=== PATIENT | male | born 1975 | race Caucasian/White ===

== ENCOUNTER 2018-02-24 16:54 | Emergency (ER) | payer MEDICAID, OTHER ==
[~2018-02-24] VITALS: Ht 175.3 cm; Wt 60.0 kg
[2018-02-24 18:13] LABS: CLARITY,URINE CLEAR (Clear); COLOR,URINE YELLOW (Yellow); GLUCOSE, URINE NEGATIVE (Neg); KETONES,URINE NEGATIVE (Neg); LEUKOCYTE ESTERASE ,URINE NEGATIVE (Neg); NITRITES, URINE NEGATIVE (Neg); OCCULT BLOOD,URINE NEGATIVE (Neg); PROTEIN,URINE NEGATIVE (Neg); UA COLLECTION TYPE CLN CATCH MIDSTREAM; UROBILINOGEN,URINE 0.2 E.U/dL (0.2-1.0)
[2018-02-24 19:03] VITALS: BP 170/72
== END 2018-02-24 20:09 | disposition home or self-care (01) ==
LOC: ER 16:55
DX: B34.9 Viral infection, unspecified (principal); F17.200 Nicotine dependence, unspecified, uncomplicated; F12.90 Cannabis use, unspecified, uncomplicated
CPT/HCPCS: 81003; 99283

== ENCOUNTER 2018-03-11 22:38 | Emergency (ER) | payer MEDICAID, OTHER ==
[~2018-03-11] VITALS: Ht 175.3 cm; Wt 52.7 kg
[2018-03-11] MEDS ORDERED: LORazepam 2 mg/ml vial IM ONE (22:50)
[2018-03-11 23:43] LABS: BASOPHILS # (AUTO) 0.1 X10'3 (0-0.2); BASOPHILS % (AUTO) 0.4 % (0-1); EOSINOPHILS # (AUTO) 0.1 X10'3 (0-0.9); EOSINOPHILS % (AUTO) 1.2 % (0-6); HEMATOCRIT 41.4 % (42.0-52.0); HEMOGLOBIN 14.2 g/dl (14.0-17.9); LYMPHOCYTES # (AUTO) 1.7 X10'3 (1.1-4.8); LYMPHOCYTES % (AUTO) 15.3 % (21-51); MEAN CORPUSCULAR HEMOGLOBIN 32.4 PG (27.0-31.0); MEAN CORPUSCULAR HGB CONC 34.4 % (33.0-36.5); MEAN CORPUSCULAR VOLUME 94.1 FL (78-98); MEAN PLATELET VOLUME 8.5 FL (7.4-10.4); MONOCYTES # (AUTO) 0.5 X10'3 (0-0.9); MONOCYTES % (AUTO) 4.2 % (2-12); NEUTROPHILS % (AUTO) 78.9 % (42-75); PLATELET COUNT 350 X10'3 (140-440); RED CELL DISTRIBUTION WIDTH 12.4 % (11.5-14.5); WHITE BLOOD COUNT 11.4 X10'3 (4.5-11.0)
[2018-03-12 00:08] LABS: ALANINE AMINOTRANSFERASE 26 U/L (12-78); ALBUMIN 4.1 G/DL (3.4-5.0); ALBUMIN/GLOBULIN RATIO 1.1 (1.1-1.5); ALKALINE PHOSPHATASE 77 IU/L (46-116); ANION GAP 7 (8-16); ASPARTATE AMINO TRANSFERASE 26 U/L (10-37); BILIRUBIN,TOTAL 0.5 MG/DL (0.1-1.0); BLOOD UREA NITROGEN 20 MG/DL (7-18); BUN/CREATININE RATIO 19.4 (5.4-32.0); CHLORIDE 101 MMOL/L (99-107); CREATININE 1.03 MG/DL (0.60-1.10); ETHANOL < 0.010 GM/DL (0.0-0.010); GLUCOSE 76 MG/DL (70-104); POTASSIUM 3.2 MMOL/L (3.5-5.1); SODIUM 140 MMOL/L (135-145); TOTAL CARBON DIOXIDE 31.6 MMOL/L (24-32); TOTAL PROTEIN 7.8 G/DL (6.4-8.2); eGFR 79 ML/MIN
[2018-03-12 00:09] LABS: CALCIUM 9.1 MG/DL (8.5-10.1)
[2018-03-12 00:11] VITALS: BP 131/92
--- NOTE | 2018-03-12 00:15 | NUR ---
SOC INIATED CAMERA PLACED IN THE ROOM.
[2018-03-12 00:26] LABS: CLARITY,URINE CLOUDY (Clear); COLOR,URINE YELLOW (Yellow); GLUCOSE, URINE NEGATIVE (Neg); KETONES,URINE NEGATIVE (Neg); LEUKOCYTE ESTERASE ,URINE NEGATIVE (Neg); NITRITES, URINE NEGATIVE (Neg); OCCULT BLOOD,URINE NEGATIVE (Neg); PROTEIN,URINE TRACE mg/dl (Neg); UROBILINOGEN,URINE 0.2 E.U/dL (0.2-1.0)
[2018-03-12 00:30] LABS: UA COLLECTION TYPE URINAL
[2018-03-12 00:38] LABS: BACTERIA,URINE 2+ /HPF (Neg)
[2018-03-12 00:39] LABS: SQUAMOUS EPITHELIAL CELL,UR FEW /LPF (FEW)
[2018-03-12 00:40] LABS: MUCUS STRANDS MODERATE /LPF (Neg)
[2018-03-12 00:42] LABS: URINE AMPHETAMINE SCREEN POSITIVE (Neg); URINE BARBITUATE SCREEN NEGATIVE (Neg); URINE BENZODIAZEPINES SCREEN NEGATIVE (Neg); URINE CANNABINOID SCREEN POSITIVE (Neg); URINE COCAINE SCREEN NEGATIVE (Neg); URINE METHADONE SCREEN NEGATIVE (Neg); URINE OPIATE SCREEN NEGATIVE (Neg); URINE PHENCYCLIDINE SCREEN NEGATIVE (Neg)
--- NOTE | 2018-03-12 01:52 | NUR ---
WALKED BY ROOM, DOOR WAS CLOSED, I COULD SEE INTO THE ROOM THAT HE WAS USING A BLEACH WIPE TO WIPE DOWN HIS BED. OPENED THE DOOR AND INSTRUCTED HIM TO PLEASE THROW AWAY THE WIPE AND TO WASH HIS HANDS GOOD. HE DID SO. HE WAS DIRECTED TO THE [facility].
[2018-03-12] MEDS ORDERED: LORazepam 0.5 MG tablet PO ONE (02:00)
--- NOTE | 2018-03-12 02:30 | NUR ---
Spoke W/ Dr. Bedoya from SOC his recomendation is that the patient should have 10mg Geodon IM one time now and remain on a hold for psych evaluation. ER informed.
[2018-03-12] MEDS ORDERED: ziprasidone IM 20mg inj **IM only IM ONE (02:50)
--- NOTE | 2018-03-12 03:21 | NUR ---
Please sue KENDRA Perez with updates and concerns
--- NOTE | 2018-03-12 03:46 | NUR ---
Recvd report assumed care. Pt is mumbling, thought process is disorganized. Pt is asking when he is leaving stating he has to go to work, but then states he has bugs in his urine and if anyone lets him leave with the bugs hes going to "file a lawsuit."
[2018-03-12] MEDS ORDERED: potassium Cl 20 mEq SR tablet PO STA (04:13)
--- NOTE | 2018-03-12 05:46 | NUR ---
Pt is laying on his back, sleeping, rr even and unlabored
--- NOTE | 2018-03-12 13:12 | NUR ---
PATIENT DID NOT AWAKEN FOR BREAKFAST OR WHEN MENTAL HEALTH WORKER WAS HERE TO INTERVIEW PATIENT. HE IS STILL SLEEPING AND NOT WILLING TO AWAKEN FOR LUNCH OR OVERDUE MEDICATION ADMINISTRATION. RESP UNLABORED AND NO DISTRESS NOTED AT THIS TIME.
--- NOTE | 2018-03-12 13:15 | NUR ---
DR GR HERE FOR CONDITION REPORT. NO NEW ORDERS AT THIS TIME.
--- NOTE | 2018-03-12 14:44 | NUR ---
PATIENT IS BEING DISCHARGED. PATIENTS GIRLFRIEND CALLED AND SAID SHE SAW BUGS ON THE PATIENT. THE RN AND TECH CHECKED THE PATIENT AND DID NOT SEE ANY VISABLE BUGS OF ANY SORT ON THE PATIENT. PATIENT WILL GET DRESSED AND [employer] WILL MANAGER PROCESS IMPROVEMENT PATIENT FROM ER.
--- NOTE | 2018-03-12 15:29 | NUR ---
PATIENT DISCHARGE. PATIENTS GIRLFRIEND PICKED UP PATIENT. IV HAS BEEN REMOVED AND ALL BELONGINGS HAVE BEEN SENT HOME WITH PATIENT
== END 2018-03-12 15:29 | disposition home or self-care (01) ==
LOC: ER 22:39
DX: R44.3 Hallucinations, unspecified (principal); F12.90 Cannabis use, unspecified, uncomplicated; F15.90 Other stimulant use, unspecified, uncomplicated
CPT/HCPCS: 36415; 80053; 80305; 80320; 81001; 84443; 85025; 96372; 99284; J2060; J3486